=== PATIENT | male | born 1970 | race Caucasian/White ===

== ENCOUNTER → 2020-10-21 | Outpatient (CLI) | payer OTHER ==
[~2020-10-21] MED LIST: ENULOSE10 GM/15 M PO; LEVOFLOXACIN750 MG PO; NORCO 7.5-3251 EACH PO
== END ==
LOC: KOH-I 15:24
DX: M25.551 Pain in right hip (principal); M25.552 Pain in left hip; M17.0 Bilateral primary osteoarthritis of knee
CPT/HCPCS: 73522; 73552